=== PATIENT | female | born 1965 | race Caucasian/White ===

== ENCOUNTER → 2017-05-01 | Outpatient (CLI) | payer BC | LOC: M LAB 08:14 | PROVIDERS: ATTEND Physician Assistant Medical | DX: R73.01 Impaired fasting glucose (principal) ==

== ENCOUNTER 2017-10-01 10:10 | Day surgery (SDC) | payer BC ==
[~2017-10-01] VITALS: Ht 162.6 cm; Wt 127.0 kg
[~2017-10-01 10:10] MED LIST: CLAR1TAB2 PO; IBUP-1114 PO; LIDOCAINE 2% INJ 100 MG/5 ML SDV (FOR ANES.) As Ordered ONE; PROPOFOL 200 MG/20 ML VIAL As Ordered ONE
[2017-10-01] MEDS: NS 1,000 ML IV ONE (10:24)
--- NOTE | 2017-10-01 11:41 | ROOR ---
Patient Name: Sanchez Mccracken Procedure Date: 10/01/2017 11:19 AM Date of : 1965 Age: 52 Room: [facility] Gender: Female Note Status: Finalized Procedure: Colonoscopy Indications: Screening for colorectal malignant neoplasm Providers: Chilango RILEY MD Referring MD: Caroline Skaggs Requesting Provider: Medicines: Monitored Anesthesia Care Complications: No immediate complications. Procedure: Pre-Anesthesia Assessment: - The heart rate, respiratory rate, oxygen saturations, blood pressure, adequacy of pulmonary ventilation, and response to care were monitored throughout the procedure. The Colonoscope was introduced through the anus and advanced to the cecum, identified by appendiceal orifice and ileocecal valve. The colonoscopy was performed without difficulty. The patient tolerated the procedure well. The quality of the bowel preparation was fair. Findings: The perianal and digital rectal examinations were normal. (EXAM: Complete, PREP: Suboptimal, required extensive lavage for adequacy of colon prep) Two sessile polyps were found in the ascending colon. The polyps were diminutive in size. These polyps were removed with a jumbo cold forceps. Resection and retrieval were complete. Multiple small-mouthed diverticula were found in the sigmoid colon. The exam was otherwise without abnormality on direct and retroflexion views. Impression: - (EXAM: Complete, PREP: Fair/Suboptimal) - Two diminutive polyps in the ascending colon, removed with a jumbo cold forceps. Resected and retrieved. - Mild diverticulosis in the sigmoid colon. - The examination was otherwise normal on direct and retroflexion views. Recommendation: - Repeat colonoscopy in 3 years because the bowel preparation was suboptimal. - Repeat colonoscopy in 3 years for surveillance. Chilango Riley MD Chilango RILEY MD 10/01/2017 11:41:22 AM This report has been signed electronically. Number of Addenda: 0 Note Initiated On: 10/01/2017 11:19 AM Estimated Blood Loss: Estimated blood loss: none.
[2017-10-03 07:46] VITALS: BP 139/80
== END 2017-10-01 12:20 | disposition home or self-care (01) ==
LOC: M OPP 10:10
PROVIDERS: ATTEND Internal Medicine Gastroenterology
DX: Z12.11 Encounter for screening for malignant neoplasm of colon (principal); D12.2 Benign neoplasm of ascending colon; K57.30 Diverticulosis of large intestine without perforation or abscess without bleeding; J45.909 Unspecified asthma, uncomplicated; M19.90 Unspecified osteoarthritis, unspecified site; M54.9 Dorsalgia, unspecified; L30.9 Dermatitis, unspecified; Z88.0 Allergy status to penicillin; Z91.040 Latex allergy status

== ENCOUNTER → 2017-11-08 | Outpatient (CLI) | payer BC ==
[2017-11-08 09:48] LABS: BASO % 0.4 % (0.0-1.0); EOS # 0.3 10^3/uL (0.0-0.50); EOS % 3.9 % (0.0-3.0); IMMATURE GRANULOCYTE % 0.3 % (0-0); LYMPH # 2.8 10^3/uL (1.5-4.5); LYMPH % 38.7 % (24.0-44.0); MEAN CORPUSCULAR HEMOGLOBIN 27.6 pg (27.0-33.0); MEAN CORPUSCULAR HGB CONC 31.3 g/dl (32.0-36.5); MEAN CORPUSCULAR VOLUME 88.2 fl (80.0-96.0); MONO # 0.6 10^3/uL (0.0-0.8); MONO % 7.7 % (0.0-5.0); NEUTROPHILS # 3.6 10^3/uL (1.8-7.7); PLATELET COUNT, AUTOMATED 274 10^3/uL (150-450); RED CELL DISTRIBUTION WIDTH 13.8 % (11.5-14.5); WHITE BLOOD COUNT 7.2 10^3/uL (4.0-10.0)
[2017-11-08 10:10] LABS: ALBUMIN 3.7 GM/DL (3.2-5.2); ALBUMIN/GLOBULIN RATIO 1.12 (1.00-1.93); ALKALINE PHOSPHATASE 71 U/L (45-117); ALT/SGPT 24 U/L (12-78); ANION GAP 7 MEQ/L (8-16); AST/SGOT 18 U/L (7-37); BILIRUBIN,TOTAL 0.3 MG/DL (0.2-1.0); BLOOD UREA NITROGEN 18 MG/DL (7-18); CALCIUM LEVEL 8.2 MG/DL (8.5-10.1); CARBON DIOXIDE LEVEL 28 MEQ/L (21-32); CHLORIDE LEVEL 109 MEQ/L (98-107); CHOLESTEROL LEVEL 169 MG/DL (<200); CREATININE FOR GFR 0.75 MG/DL (0.55-1.02); GLOMERULAR FILTRATION RATE > 60.0 (>51); GLUCOSE, FASTING 101 MG/DL (70-105); POTASSIUM SERUM 4.4 MEQ/L (3.5-5.1); SODIUM LEVEL 144 MEQ/L (136-145); TRIGLYCERIDES LEVEL 138 MG/DL (<150)
[2017-11-08 11:24] LABS: ESTIMATED AVERAGE GLUCOSE 117 MG/DL (60-110)
[2017-11-08 16:20] LABS: VITAMIN B12 LEVEL 334 PG/ML (247-911)
== END ==
LOC: M LAB 09:06
DX: Z12.11 Encounter for screening for malignant neoplasm of colon (principal)
CPT/HCPCS: 82607

== ENCOUNTER → 2017-12-07 | Outpatient (CLI) | payer BC | LOC: M RAD 09:04 | DX: J06.9 Acute upper respiratory infection, unspecified (principal) | CPT/HCPCS: 71046 ==

== ENCOUNTER → 2018-02-07 | Outpatient (REF) | payer BC ==
[2018-02-07 16:30] LABS: BASO % 0.3 % (0.0-1.0); EOS # 0.3 10^3/uL (0.0-0.50); EOS % 2.8 % (0.0-3.0); HEMATOCRIT 39.9 % (36.0-47.0); HEMOGLOBIN 12.1 g/dl (12.0-15.5); IMMATURE GRANULOCYTE % 0.3 % (0-3.0); LYMPH # 1.6 10^3/uL (1.5-4.5); LYMPH % 16.5 % (24.0-44.0); MEAN CORPUSCULAR HEMOGLOBIN 25.7 pg (27.0-33.0); MEAN CORPUSCULAR HGB CONC 30.3 g/dl (32.0-36.5); MEAN CORPUSCULAR VOLUME 84.7 fl (80.0-96.0); MONO # 0.7 10^3/uL (0.0-0.8); MONO % 7.2 % (0.0-5.0); NEUTROPHILS % 72.9 % (36.0-66.0); PLATELET COUNT, AUTOMATED 226 10^3/uL (150-450); RED BLOOD COUNT 4.71 10^6/uL (4.00-5.40); RED CELL DISTRIBUTION WIDTH 15.2 % (11.5-14.5); WHITE BLOOD COUNT 9.6 10^3/uL (4.0-10.0)
[2018-02-07 16:48] LABS: ALBUMIN/GLOBULIN RATIO 1.08 (1.00-1.93); ALKALINE PHOSPHATASE 76 U/L (45-117); ALT/SGPT 23 U/L (12-78); ANION GAP 5 MEQ/L (8-16); AST/SGOT 17 U/L (7-37); BILIRUBIN,TOTAL 0.4 MG/DL (0.2-1.0); BLOOD UREA NITROGEN 17 MG/DL (7-18); CALCIUM LEVEL 8.4 MG/DL (8.5-10.1); CARBON DIOXIDE LEVEL 27 MEQ/L (21-32); CHLORIDE LEVEL 108 MEQ/L (98-107); CREATININE FOR GFR 0.78 MG/DL (0.55-1.30); GLOMERULAR FILTRATION RATE > 60.0 (>51); GLUCOSE, FASTING 91 MG/DL (70-100); NT-PRO BNP 58 PG/ML (<125); POTASSIUM SERUM 4.8 MEQ/L (3.5-5.1); SODIUM LEVEL 140 MEQ/L (136-145); TOTAL PROTEIN 7.7 GM/DL (6.4-8.2); TROPONIN I < 0.02 NG/ML (< 0.10)
[2018-02-07 16:48] LABS: D-DIMER QUANT 422.3 ng/ml (<500)
== END ==
LOC: M SFHCLERA 15:20
DX: R07.1 Chest pain on breathing (principal)
CPT/HCPCS: 80053

== ENCOUNTER → 2018-02-07 | Outpatient (CLI) | payer BC | LOC: M LRY 15:32 | DX: R09.89 Other specified symptoms and signs involving the circulatory and respiratory systems (principal); R07.1 Chest pain on breathing | CPT/HCPCS: 71046 ==

== ENCOUNTER → 2018-09-17 | Outpatient (CLI) | payer BC ==
[2018-09-17 08:37] LABS: BASO % 0.4 % (0.0-1.0); EOS # 0.2 10^3/uL (0.0-0.50); EOS % 2.5 % (0.0-3.0); HEMATOCRIT 41.8 % (36.0-47.0); HEMOGLOBIN 13.1 g/dl (12.0-15.5); IMMATURE GRANULOCYTE % 0.4 % (0-3.0); LYMPH # 2.4 10^3/uL (1.5-4.5); LYMPH % 31.3 % (24.0-44.0); MEAN CORPUSCULAR HEMOGLOBIN 27.3 pg (27.0-33.0); MEAN CORPUSCULAR HGB CONC 31.3 g/dl (32.0-36.5); MEAN CORPUSCULAR VOLUME 87.1 fl (80.0-96.0); MONO # 0.5 10^3/uL (0.0-0.8); NEUTROPHILS # 4.5 10^3/uL (1.8-7.7); NEUTROPHILS % 58.4 % (36.0-66.0); PLATELET COUNT, AUTOMATED 233 10^3/uL (150-450); RED CELL DISTRIBUTION WIDTH 13.2 % (11.5-14.5); WHITE BLOOD COUNT 7.7 10^3/uL (4.0-10.0)
[2018-09-17 08:57] LABS: ERYTHROCYTE SEDIMENTATION RATE 22 mm/hr (0-30)
[2018-09-17 08:59] LABS: ALBUMIN 3.7 GM/DL (3.2-5.2); ALBUMIN/GLOBULIN RATIO 1.09 (1.00-1.93); ALKALINE PHOSPHATASE 72 U/L (45-117); ALT/SGPT 25 U/L (12-78); ANION GAP 9 MEQ/L (8-16); AST/SGOT 19 U/L (7-37); BILIRUBIN,TOTAL 0.4 MG/DL (0.2-1.0); BLOOD UREA NITROGEN 17 MG/DL (7-18); C REACTIVE PROTEIN QUANTITATIV 1.09 MG/DL (0.00-0.30); CALCIUM LEVEL 8.9 MG/DL (8.5-10.1); CARBON DIOXIDE LEVEL 28 MEQ/L (21-32); CHLORIDE LEVEL 104 MEQ/L (98-107); GLOMERULAR FILTRATION RATE > 60.0 (>51); GLUCOSE, FASTING 93 MG/DL (70-100); POTASSIUM SERUM 4.5 MEQ/L (3.5-5.1); SODIUM LEVEL 141 MEQ/L (136-145); TOTAL PROTEIN 7.1 GM/DL (6.4-8.2)
[2018-09-17 09:01] LABS: ESTIMATED AVERAGE GLUCOSE 128 MG/DL (60-110); HEMOGLOBIN A1c 6.1 %
== END ==
LOC: M LAB 07:47
DX: L03.211 Cellulitis of face (principal); I10 Essential (primary) hypertension; R73.01 Impaired fasting glucose
CPT/HCPCS: 80053

== ENCOUNTER → 2018-10-07 | Outpatient (CLI) | payer BC ==
[2018-10-07 17:47] LABS: BASO % 0.4 % (0.0-1.0); EOS # 0.2 10^3/uL (0.0-0.50); EOS % 2.2 % (0.0-3.0); HEMATOCRIT 41.2 % (36.0-47.0); HEMOGLOBIN 13.1 g/dl (12.0-15.5); IMMATURE GRANULOCYTE % 0.2 % (0-3.0); LYMPH # 2.9 10^3/uL (1.5-4.5); LYMPH % 31.9 % (24.0-44.0); MEAN CORPUSCULAR HEMOGLOBIN 27.8 pg (27.0-33.0); MEAN CORPUSCULAR HGB CONC 31.8 g/dl (32.0-36.5); MEAN CORPUSCULAR VOLUME 87.3 fl (80.0-96.0); MONO # 0.6 10^3/uL (0.0-0.8); MONO % 6.9 % (0.0-5.0); NEUTROPHILS # 5.4 10^3/uL (1.8-7.7); NEUTROPHILS % 58.4 % (36.0-66.0); PLATELET COUNT, AUTOMATED 247 10^3/uL (150-450); RED BLOOD COUNT 4.72 10^6/uL (4.00-5.40); RED CELL DISTRIBUTION WIDTH 13.3 % (11.5-14.5); WHITE BLOOD COUNT 9.2 10^3/uL (4.0-10.0)
[2018-10-07 17:53] LABS: C REACTIVE PROTEIN QUANTITATIV 0.91 MG/DL (0.00-0.30)
[2018-10-07 19:54] LABS: ERYTHROCYTE SEDIMENTATION RATE 23 mm/hr (0-30)
== END ==
LOC: M LAB 16:17
DX: L03.211 Cellulitis of face (principal)
CPT/HCPCS: 86140

== ENCOUNTER → 2019-05-06 | Outpatient (CLI) | payer BC ==
[~2019-05-06] MED LIST changes: -LIDOCAINE 2% INJ 100 MG/5 ML SDV (FOR ANES.) As Ordered ONE; -PROPOFOL 200 MG/20 ML VIAL As Ordered ONE
[2019-05-06 08:12] LABS: BASO # 0.1 10^3/uL (0.0-0.2); BASO % 0.7 % (0.0-1.0); EOS # 0.2 10^3/uL (0.0-0.50); EOS % 2.8 % (0.0-3.0); HEMATOCRIT 40.8 % (36.0-47.0); LYMPH # 2.7 10^3/uL (1.5-4.5); LYMPH % 38.3 % (24.0-44.0); MEAN CORPUSCULAR HEMOGLOBIN 27.7 pg (27.0-33.0); MEAN CORPUSCULAR HGB CONC 31.9 g/dl (32.0-36.5); MEAN CORPUSCULAR VOLUME 86.8 fl (80.0-96.0); MONO # 0.5 10^3/uL (0.0-0.8); MONO % 7.5 % (0.0-5.0); NEUTROPHILS # 3.6 10^3/uL (1.8-7.7); NEUTROPHILS % 50.3 % (36.0-66.0); PLATELET COUNT, AUTOMATED 200 10^3/uL (150-450); WHITE BLOOD COUNT 7.1 10^3/uL (4.0-10.0)
[2019-05-06 08:38] LABS: ALBUMIN 3.5 GM/DL (3.2-5.2); ALT/SGPT 22 U/L (12-78); BILIRUBIN,TOTAL 0.3 MG/DL (0.2-1.0); BLOOD UREA NITROGEN 24 MG/DL (7-18); CALCIUM LEVEL 8.5 MG/DL (8.5-10.1); CARBON DIOXIDE LEVEL 26 MEQ/L (21-32); CHLORIDE LEVEL 109 MEQ/L (98-107); CHOLESTEROL LEVEL 170 MG/DL (<200); CHOLESTEROL RISK RATIO 3.953 (<5); CPK CREATINE PHOSPHOKINASE 75 U/L (26-192); CREATININE FOR GFR 0.92 MG/DL (0.55-1.30); GLOMERULAR FILTRATION RATE > 60.0 (>51); GLUCOSE, FASTING 91 MG/DL (70-100); HDL CHOLESTEROL 43 MG/DL (>40); LDL CHOLESTEROL 103 MG/DL (<100); NON-HDL-C 127 MG/DL; SODIUM LEVEL 141 MEQ/L (136-145); TRIGLYCERIDES LEVEL 119 MG/DL (<150)
[2019-05-06 08:45] LABS: HEMOGLOBIN A1c 6.3 %
== END ==
LOC: M LAB 07:48
PROVIDERS: ATTEND Physician Assistant Medical
DX: I10 Essential (primary) hypertension (principal); Z13.220 Encounter for screening for lipoid disorders; R73.01 Impaired fasting glucose

== ENCOUNTER → 2019-10-28 | Outpatient (CLI) | payer BC ==
--- NOTE | 2019-10-28 17:33 | REPPI ---
REASON FOR EXAM: Knee pain. History of effusion. COMPARISON: 09/15/2015 There is tricompartmental marginal osteophytosis increased somewhat from the prior exam. There is no acute fracture or destructive osseous lesion. IMPRESSION:Chronic changes as described above. If an effusion is of clinical concern then I would recommend an MRI. Electronically Signed by Gustavo Montero DO 10/29/2019 11:31 A
== END ==
LOC: M PLAIMG 15:56
PROVIDERS: ATTEND Physician Assistant Medical
DX: M25.761 Osteophyte, right knee (principal); M25.461 Effusion, right knee

== ENCOUNTER → 2019-11-07 | Outpatient (CLI) | payer BC ==
--- NOTE | 2019-11-10 09:31 | REP ---
MRI right knee without contrast: History: Right knee infusion. Comparison radiographs are reviewed from October 28, 2019, September 04, 2009, and September 15, 2015. Technique: Axial, coronal, and sagittal imaging planes were utilized for T1, proton density T2-weighted scans obtained in the usual fashion with and without fat saturation. MRI findings: There is fairly prominent metallic field susceptibility artifact emanating from the focus in anterolateral tibial plateau. This corresponds with a metallic density seen radiographically in this location on films dating back to 2008. An incidental left intraosseous metallic foreign body is suspected here. It is radiographically stable. Cortical and medullary bone signal intensity are otherwise normal. No Baltazar's cyst is seen. There is however a parameniscal cyst medial aspect of the joint extending superiorly over a craniocaudal span measuring 4.1 cm. The meniscal cyst has components which are deep to and superficial to the collateral ligament. There is no evidence of medial collateral ligament disruption. There is no evidence of lateral collateral ligament disruption. The anterior and posterior cruciate ligaments have an intact appearance. Patellar and quadriceps tendons are unremarkable. Medial and lateral patella retinacular structures are intact. There is moderate chondromalacia in the medial and lateral compartments and early osteoarthritic spurring is seen in the medial and lateral tibial femoral compartment. There is also advanced chondromalacia in the lateral patellar facet with small areas of subcortical marrow edema associated with this. The lateral meniscus has an intact appearance. Impression: 1. There is a complex appearing simply horizontal tear in the posterior horn of the medial meniscus associated with a 4 cm parameniscal cyst. 2. There is three compartment osteoarthritis and moderate to advanced chondromalacia. 3. There is metallic field susceptibility artifact emanating from the small focus of metallic material in the anterolateral tibial plateau. Electronically Signed by Richy Sue MD 11/10/2019 06:17 P
== END ==
LOC: M PLARAD 14:59
PROVIDERS: ATTEND Physician Assistant Medical
DX: M23.021 Cystic meniscus, posterior horn of medial meniscus, right knee (principal); M17.31 Unilateral post-traumatic osteoarthritis, right knee; M22.41 Chondromalacia patellae, right knee; M25.461 Effusion, right knee

== ENCOUNTER → 2019-12-31 | Outpatient (REF) | payer BC ==
[~2019-12-31] MED LIST changes: +AMLO5TAB6 PO; +CLAR10CA3 PO; +MONT10TA4 PO; +SYMB80INH INH
[2019-12-31 18:28] LABS: HEMATOCRIT 40.4 % (36.0-47.0); HEMOGLOBIN 12.7 g/dl (12.0-15.5); MEAN CORPUSCULAR HEMOGLOBIN 27.5 pg (27.0-33.0); MEAN CORPUSCULAR HGB CONC 31.4 g/dl (32.0-36.5); MEAN CORPUSCULAR VOLUME 87.4 fl (80.0-96.0); PLATELET COUNT, AUTOMATED 212 10^3/uL (150-450); RED BLOOD COUNT 4.62 10^6/uL (4.00-5.40); WHITE BLOOD COUNT 7.4 10^3/uL (4.0-10.0)
[2019-12-31 18:50] LABS: HEMOGLOBIN A1c 6.1 %
[2019-12-31 18:59] LABS: BLOOD UREA NITROGEN 15 MG/DL (7-18); CALCIUM LEVEL 8.6 MG/DL (8.5-10.1); CARBON DIOXIDE LEVEL 28 MEQ/L (21-32); CHLORIDE LEVEL 106 MEQ/L (98-107); CREATININE FOR GFR 0.77 MG/DL (0.55-1.30); GLOMERULAR FILTRATION RATE > 60.0 (>51); GLUCOSE, FASTING 91 MG/DL (70-100); POTASSIUM SERUM 3.7 MEQ/L (3.5-5.1); SODIUM LEVEL 137 MEQ/L (136-145)
== END ==
LOC: M SFHCPLAZ 14:22
PROVIDERS: ATTEND Family Medicine
DX: Z01.818 Encounter for other preprocedural examination (principal); R73.01 Impaired fasting glucose

== ENCOUNTER 2020-01-05 11:18 | Day surgery (SDC) | payer BC ==
[~2020-01-05] VITALS: Ht 160 cm; Wt 125.2 kg
[~2020-01-05 11:18] MED LIST changes: +CLINDAMYCIN 900 MG in IV 1 EA IV ONE; +LR 1,000 ML IV ONE
[2020-01-05] MEDS ORDERED: MIDAZOLAM INJ 2 MG/2 ML VIAL (J2250) As Ordered ONE (12:29)
[2020-01-05] MEDS ORDERED: propofoL 200 MG/20 ML VIAL As Ordered ONE (12:29)
[2020-01-05] MEDS ORDERED: ONDANSETRON 4MG/2ML VIAL (J2405) As Ordered ONE (12:30)
[2020-01-05] MEDS ORDERED: LIDOCAINE 2% INJ 100 MG/5 ML SDV (FOR ANES.) As Ordered ONE (12:30)
[2020-01-05] MEDS ORDERED: ROPIvacaine 0.5% 30 ML INJECTION (J2795 PER 1MG) As Ordered ONE (13:26)
[2020-01-05] MEDS ORDERED: ACETAMINOPHEN 1000MG 100ML IV BTL (OFIRMEV) (J0131 PER 10MG) As Ordered ONE (14:28)
[2020-01-05] MEDS ORDERED: TRIAMCINOLONE ACETONIDE SUSP 40 MG/ML VIAL (J3301) As Ordered ONE (14:30)
[2020-01-05] MEDS ORDERED: METOCLOPRAMIDE INJ 10MG/2ML VIAL (J2765) IV PRN (15:00)
[2020-01-05] MEDS ORDERED: fentaNYL 100 MCG/2 ML INJECTION (J3010) IV PRN (15:00)
[2020-01-05] MEDS ORDERED: LR 1,000 ML IV SCH ×2 (15:00→16:01)
[2020-01-05] MEDS ORDERED: PERCOCET 5MG/325MG TAB PO PRN (15:00)
[2020-01-05] MEDS ORDERED: ONDANSETRON 4MG/2ML VIAL (J2405) IV PRN (15:00)
[2020-01-05] MEDS ORDERED: ACETAMINOPH W/CODEINE #3 TAB UD PO PRN ×2 (15:00→16:01)
[2020-01-05] MEDS ORDERED: MORPHINE 2 MG/ML 1ML VIAL (J2270) IV PRN (16:01)
[2020-01-05 17:00] VITALS: BP 165/62
--- NOTE | 2020-01-06 07:31 | RO ---
DATE OF PROCEDURE: 01/05/2020 PREOPERATIVE DIAGNOSIS: Right knee osteoarthritis, medial meniscus tear. POSTOPERATIVE DIAGNOSIS: Right knee osteoarthritis, medial meniscus tear. PROCEDURE: Right knee operative arthroscopy, partial medial meniscectomy, joint debridement. SURGEON: Dr. Rex Isidro BRIEF WRITER: ANESTHESIA: Spinal. ESTIMATED BLOOD LOSS: Less than 2. COMPLICATIONS: None. INDICATIONS: This is a 54-year-old, morbidly obese woman with some persistent right knee pain. MRI scan was consistent with a meniscus tear and some arthritis. She wished to go ahead with surgical treatment having failed conservative management. She understood the nature of this and the risks of bleeding, infection, damage to nerves, vessels, persistent pain, blood clots, medical problems, among others. DESCRIPTION OF PROCEDURE: The patient was taken to the operating room and placed in a supine position after spinal anesthesia was induced. The right lower extremity was prepped and draped in the usual sterile fashion. A time out was performed. The tourniquet was inflated. I then created inferomedial and inferolateral portals per routine and identified the patellofemoral joint. There were some grade 2 to 3 changes throughout the patellofemoral joint and some thickened plica that was excised. I proceeded down the medial gutter. There was some grade 3 changes on the medial femoral condyle with loose flaps that were carefully smoothed off and a posterior medial meniscus tear that was resected with a shaver back to a stable rim. The anterior cruciate ligament (ACL) was unremarkable. The lateral compartment was otherwise unremarkable aside from some grade 2 changes consistent with arthritis. I irrigated the knee, reprobed the menisci and made sure the medial meniscus resection was adequate and closed with skin with 4-0 nylon suture. I injected 15 mL of Naropin as well as 40 mg of Kenalog. A sterile dressing was applied. She was taken to the recovery room in stable condition. There were no known complications. The plan will be routine postop.
== END 2020-01-05 17:05 | disposition home or self-care (01) ==
LOC: M SDC 11:18
PROVIDERS: ATTEND Orthopaedic Surgery
DX: S83.241A Other tear of medial meniscus, current injury, right knee, initial encounter (principal); M17.11 Unilateral primary osteoarthritis, right knee; X58.XXXA Exposure to other specified factors, initial encounter; Y92.89 Other specified places as the place of occurrence of the external cause; I10 Essential (primary) hypertension; R73.03 Prediabetes; K21.9 Gastro-esophageal reflux disease without esophagitis; J45.40 Moderate persistent asthma, uncomplicated; G62.9 Polyneuropathy, unspecified; Z87.891 Personal history of nicotine dependence; Z91.018 Allergy to other foods; Z88.0 Allergy status to penicillin; Z88.8 Allergy status to other drugs, medicaments and biological substances; Z91.040 Latex allergy status; Z79.899 Other long term (current) drug therapy; Z79.52 Long term (current) use of systemic steroids
CPT/HCPCS: 29881; J0131; J2250; J2405; J2795; J3301

== ENCOUNTER 2021-01-03 07:05 | Emergency (ER) | payer BC ==
[~2021-01-03] VITALS: Ht 162.6 cm; Wt 131.8 kg
[~2021-01-03 07:05] MED LIST changes: +AMLO1TAB24 PO; -AMLO5TAB6 PO; -CLINDAMYCIN 900 MG in IV 1 EA IV ONE; -LR 1,000 ML IV ONE; +MONT10TA10 PO; -MONT10TA4 PO
--- OUTSIDE RECORDS SUMMARY | 2021-01-03 07:11 | CCD | Continuity of Care Document ---
Author Author Sanchez DUNNE RPA-C Organization Unknown Address [address], [address] [place] [address] Phone [phone] Care Team Providers Care Reporter Anchor Name Role Phone Caroline Skaggs AUTM Problems Active Problems Provider Date Essential hypertension Mary Beth Avery UZMA Dunne Onset: Social History Type Date Description Comments Sex Unknown ETOH Use Denies alcohol use Tobacco Use Start: Unknown Non Smoker Allergies, Adverse Reactions, Alerts Active Allergies Reaction Severity Comments Date Penicillin 09/03/2017 Medications Active Medications SIG Qnty Indications Ordering Provide r Date Miralax 17GM/Scoop Powder use as instructed by doctor for bowel prep 510gm Z12.11 Chilango Camargo MD 12/29/2020 Magnesium Citrate 1.745GM/30ML Yasmin ution take one 10 ounce bottle prior to procedure for additional bowel prep per instructions. 296ml Z12.11 Chilango Camargo MD 12/29/2020 Ibuprofen 800mg Tablets Daily Unknown Loratadine 10mg Tablets 2 by mouth every day Unknown Amlodipine Besylate 5mg Tablets 1 by mouth every day Unknown Immunizations Description No Information Available Vital Signs Date Vital Result Comment 12/29/2020 3:25pm BP Systolic 122 mmHg BP Diastolic 82 mmHg Height 64 inches 5'4" Weight 282.00 lb BMI (Body Mass Index) 48.4 kg/m2 [place] Body Weight 120 lb Weight 127.915 kg BSA (Body Surface Area) 2.26 m2 09/04/2017 8:25am BP Systolic 128 mmHg BP Diastolic 84 mmHg Height 64 inches 5'4" Weight 282.00 lb BMI (Body Mass Index) 48.4 kg/m2 [place] Body Weight 120 lb Weight 127.915 kg BSA (Body Surface Area) 2.26 m2 Results Description No Information Available Procedures Description No Information Available Medical Devices Description No Information Available Encounters Description No Information Available Assessments Date Code Description Provider 12/29/2020 Z12.11 Encounter for screening for tammy gnant neoplasm of colon Mary Beth Avery UZMA Dunne 12/29/2020 Z86.010 Personal history of colonic poly ps UZMA Paz Plan of Treatment 12/29/2020 - Mary Beth Avery UZMA Dunne* Z12.11 Encounter for screening for malignant neoplasm of colon * Z86.010 Personal history of colonic polyps * * New Medication:* Miralax 17 GM/Scoop * Magnesium Citrate 1.745 GM/30ML * New Orders:* Colonoscopy, Ordered: 12/29/20 * Comments:* Will arrange for colonoscopy. Reviewed risks and benefits of the procedure, as well as other options, with the patient. Bowel prep procedure was discussed with patient, as well as risks and side effects associated with the bowel prep. Patient verbalized understanding of all of the above and is in agreement to proceed. Patient will seek medical attention for any acute changes. Will monitor. * Follow up:* As scheduled, sooner if needed. Functional Status Description No Information Available Mental Status Description No Information Available Referrals Description No Information Available
--- OUTSIDE RECORDS SUMMARY | 2021-01-03 07:11 | CCD ---
Author Author [facility] Organization [facility] Address Unknown Phone Unavailable Care Team Providers Care Concaver Name Role Phone Fish, B Rex FRANKLIN Unavailable Unavailable Fish, B Rex FRANKLIN Unavailable Unavailable Fish, B Rex FRANKLIN Unavailable Unavailable Fish, B Rex FRANKLIN Unavailable Unavailable Fish, B Rex FRANKLIN Unavailable Unavailable Fish, B Rex FRANKLIN Unavailable Unavailable Fish, B Rex FRANKLIN Unavailable Unavailable Fish, B Rex FRANKLIN Unavailable Unavailable Fish, B Rex FRANKLIN Unavailable Unavailable Fish, B Rex FRANKLIN Unavailable Unavailable Fish, B Rex FRANKLIN Unavailable Unavailable Fish, B Rex FRANKLIN Unavailable Unavailable Fish, B Rex FRANKLIN Unavailable Unavailable Fish, B Rex FRANKLIN Unavailable Unavailable Fish, B Rex FRANKLIN Unavailable Unavailable Fish, B Rex FRANKLIN Unavailable Unavailable Fish, B Rex FRANKLIN Unavailable Unavailable Fish, B Rex FRANKLIN Unavailable Unavailable Fish, B Rex FRANKLIN Unavailable Unavailable Fish, B Rex FRANKLIN Unavailable Unavailable Fish, B Rex FRANKLIN Unavailable Unavailable Fish, B Rex FRANKLIN Unavailable Unavailable Fish, B Rex FRANKLIN Unavailable Unavailable Fish, B Rex FRANKLIN Unavailable Unavailable Fish, B Rex FRANKLIN Unavailable Unavailable Fish, B Rex FRANKLIN Unavailable Unavailable Fish, B Rex FRANKLIN Unavailable Unavailable Fish, B Rex FRANKLIN Unavailable Unavailable Fish, B Rex FRANKLIN Unavailable Unavailable Fish, B Rex MD Unavailable Unavailable Fish, B Rex MD Unavailable Unavailable Fish, B Rex MD Unavailable Unavailable Fish, B Rex MD Unavailable Unavailable Fish, B Rex MD Unavailable Unavailable Fish, B Rex MD Unavailable Unavailable Fish, B Rex MD Unavailable Unavailable Fish, B Rex MD Unavailable Unavailable Fish, B Rex MD Unavailable Unavailable Fish, B Rex MD Unavailable Unavailable Fish, B Rex MD Unavailable Unavailable Fish, B Rex MD Unavailable Unavailable Fish, B Rex MD Unavailable Unavailable Fish, B Rex MD Unavailable Unavailable Fish, B Rex MD Unavailable Unavailable Fish, B Rex MD Unavailable Unavailable Fish, B Rex MD Unavailable Unavailable Fish, B Rex MD Unavailable Unavailable Fish, B Rex MD Unavailable Unavailable Fish, B Rex MD Unavailable Unavailable Fish, B Rex MD Unavailable Unavailable Fish, B Rex MD Unavailable Unavailable Fish, B Rex MD Unavailable Unavailable Fish, B Rex MD Unavailable Unavailable Re-disclosure Warning The records that you are about to access may contain information from federally-assisted alcohol or drug abuse programs. If such information is present, then the following federally mandated warning applies: This information has been disclosed to you from records protected by federal confidentiality rules (42 CFR part 2). The federal rules prohibit you from making any further disclosure of this information unless further disclosure is expressly permitted by the written consent of the person to whom it pertains or as otherwise permitted by 42 CFR part 2. A general authorization for the release of medical or other information is NOT sufficient for this purpose. The Federal rules restrict any use of the information to criminally investigate or prosecute any alcohol or drug abuse patient.The records that you are about to access may contain highly sensitive health information, the redisclosure of which is protected by Article 27-F of the [facility] Public Health law. If you continue you may have access to information: Regarding HIV / AIDS; Provided by facilities licensed or operated by the [facility] Office of Mental Health; or Provided by the [facility] Office for People With Developmental Disabilities. If such information is present, then the following [facility] mandated warning applies: This information has been disclosed to you from confidential records which are protected by state law. State law prohibits you from making any further disclosure of this information without the specific written consent of the person to whom it pertains, or as otherwise permitted by law. Any unauthorized further disclosure in violation of state law may result in a fine or snf sentence or both. A general authorization for the release of medical or other information is NOT sufficient authorization for further disc losure. Allergies and Adverse Reactions Type Description Substance Reaction Status Data Source(s ) Drug allergy Mucinex Guaifenesin SOB Active eCW1 ([facility]) latex latex latex rash, blisters Active eCW1 ([facility]) dust dust dust Rash Active eCW1 ([facility]) Family History Family Member Name Family Member Gender Family Member Status Date o f Status Description Data Source(s) Unknown Unknown Problem MEDENT ([facility], ) or Endometrial Cancer; Mother; 40's Encounters Encounter Providers Location Date Indications Data Source(s ) Unknown [address] [place] [phone] 09/02/2020 12:00:00 AM EDT eCW1 ([facility]) Unknown [address] [place] [phone] 05/30/2020 12:00:00 AM EDT eCW1 ([facility]) [address] [address] 02/29/2020 12:00:00 AM EDT eCW1 ([facility]) Outpatient [address] [place] [phone] 02/13/2020 12:00:00 AM EDT eCW1 ([facility]) [address] [address] 01/01/2020 12:00:00 AM EST eCW1 ([facility]) [address] [address] 12/31/2019 12:00:00 AM EST eCW1 ([facility]) OFFICE OUTPATIENT NEW 30 MINUTES Attender: Rex Isidro MD Physic al Therapy 12/03/2019 08:30:00 AM EST MEDENT ([facility]) Outpatient 11/24/2019 08:16:00 PM EST [facility] [address] [address] 11/24/2019 12:00:00 AM EST eCW1 ([facility]) Outpatient 11/18/2019 02:34:00 PM EST [facility] [address], [facility] [address] 11/13/2019 12:00:00 AM EST eCW1 ([facility]) Medications Medication Brand Name Start Date Product Form Dose Route Admi nistrative Instructions Pharmacy Instructions Status Indications Reaction Description Data Source(s) magnesium citrate 58.2 MG/ML Oral Solution Magnesium Citrate 12/29/2020 12:00:00 AM EST active MEDENT ([facility], ) POLYETHYLENE GLYCOL 3350 142 MG/ML Oral Solution [Miralax] M iralax 12/29/2020 12:00:00 AM EST active M EDENT ([facility], ) Acetaminophen 300 MG / Codeine Phosphate 30 MG Oral Tablet [Tylenol with Codeine] Tylenol With Codeine #3 12/22/2019 12:00:00 AM EST ORAL active MEDENT ([facility]) Insurance Providers Payer name Policy type / Coverage type Policy ID Covered democrat ID Covered democrat's relationship to peterson Policy Peterson Plan Information [facility] [employer] [id number] [employer] [id number] [facility] B [id number] P [id number] ANSI-Commercial [id number] ANSI-Commercial [id number] ANSI-Commercial [id number] ANSI-Commercial [id number] ANSI-Commercial [id number] ANSI-Commercial [id number] ANSI-Commercial [id number] ANSI-Commercial [id number] [facility] [employer] [employer] [employer] [id number] ANSI-Commercial [id number] ANSI-Commercial [id number] [facility] [id number] HU2 [id number] [facility] Health Maintenance Organization (HMO) [id number] Family Dependent [id number] [facility] [id number] HU2 [id number] [facility] [id number] HU2 [id number] [facility] [id number] HU2 [id number] [facility] FEDERAL B [id number] P [id number] Problems, Conditions, and Diagnoses Code Display Name Description Problem Type Effective Dates Data Source(s) 94314255 Essential hypertension Essential hypertension Problem 12/29/2020 12:00:00 AM EST MEDENT ([facility], ) J45.40 [id number] Moderate persistent asthma without compli cation Problem 12/31/2019 12:00:00 AM EST eCW1 ([facility]) J45.40 [id number] Moderate persistent asthma without compli cation Problem 12/31/2019 12:00:00 AM EST eCW1 ([facility]) 66713256 Essential hypertension Essential hypertension Problem 12/03/2019 12:00:00 AM EST MEDENT ([facility] ) M23.221 [id number] Derangement of poste rior horn of medial meniscus due to old tear or injury, right knee Problem 11/13/2019 12:00:00 AM EST eCW1 ( [facility]) M23.221 [id number] Derangement of poste rior horn of medial meniscus due to old tear or injury, right knee Problem 11/13/2019 12:00:00 AM EST eCW1 ( [facility]) Surgeries/Procedures Procedure Description Date Indications Data Source(s) ARTHRS KNE SURG W/MENISCECTOMY MED/LAT W/SHVG 01/05/20 12:00:00 AM EST MEDENT ([facility] ) EKG- ALL NON MCR/TRI PAYERS 12/31/2019 12:00:00 AM EST eCW1 ([facility]) Results ID Date Data Source Basic Metabolic Profile (BMP) 12/31/2019 12:00:00 AM EST eCW 1 ([facility]) Name Value Range Interpretation Code Description Data Lily rce(s) Supporting Document(s) 0.77 0.55-1.30 CREATININE FOR GFR eCW1 ([facility]) > 60.0 >51 GLOMERULAR FILTRATION RATE eCW 1 ([facility]) 91 70-100 GLUCOSE, FASTING eCW1 ([facility]) 15 7-18 BLOOD UREA NITROGEN eCW1 ([facility]) 137 136-145 SODIUM LEVEL eCW1 ([facility]) 106 98-107 CHLORIDE LEVEL eCW1 ([facility]) 28 21-32 CARBON DIOXIDE LEVEL eCW1 ([facility]) 3.7 3.5-5.1 POTASSIUM SERUM eCW1 ([facility]) 8.6 8.5-10.1 CALCIUM LEVEL eCW1 ([facility]) ID Date Data Source [id number] 12/31/2019 12:00:00 AM EST eCW1 ([facility]) Name Value Range Interpretation Code Description Data Lily rce(s) Supporting Document(s) Hemoglobin A1c/Hemoglobin.total in Blood 6.1 HEMOGLOBIN A1c eCW1 ([facility]) ID Date Data Source CBC - Complete Blood Count 12/31/2019 12:00:00 AM EST eCW1 ( [facility]) Name Value Range Interpretation Code Description Data Lily rce(s) Supporting Document(s) 7.4 4.0-10.0 WHITE BLOOD COUNT eCW1 ([facility]) 4.62 4.00-5.40 RED BLOOD COUNT eCW1 ([facility]) 12.7 12.0-15.5 HEMOGLOBIN eCW1 ([facility]) 40.4 36.0-47.0 HEMATOCRIT eCW1 ([facility]) 31.4 32.0-36.5 MEAN CORPUSCULAR HGB CONC eCW1 ([facility]) 87.4 80.0-96.0 MEAN CORPUSCULAR VOLUME e CW1 ([facility]) 13.6 11.5-14.5 RED CELL DISTRIBUTION WID TH eCW1 ([facility]) 27.5 27.0-33.0 MEAN CORPUSCULAR HEMOGLOB IN eCW1 ([facility]) 212 150-450 PLATELET COUNT, AUTOMATED eCW1 ([facility]) Procedure Social History Code Duration Value Status Description Data Source(s ) Smoking 12/31/2019 12:00:00 AM EST Never Smoker completed Never S moker eCW1 ([facility]) Smoking 12/31/2019 12:00:00 AM EST Never Smoker completed Never S moker eCW1 ([facility]) Vital Signs ID Date Data Source UNK Name Value Range Interpretation Code Description Data Source(s) Body surface area Derived from formula 2.26 m2 2.26 m2 MEDENT ([facility], ) Body weight 127.915 kg 127.915 kg MEDENT ([facility] ) [place] body weight 120 [lb_av] 120 [lb_av] MEDEN T ([facility], ) Body mass index (BMI) [Ratio] 48.4 kg/m2 48.4 k g/m2 MEDENT ([facility]) Body weight 282.00 [lb_av] 282.00 [lb_av] MEDEN T ([facility]) Body height 64 [in_i] 64 [in_i] MEDENT ([facility], ) 5'4" Diastolic blood pressure 82 mm[Hg] 82 mm[Hg] MEDENT ([facility]) Systolic blood pressure 122 mm[Hg] 122 mm[Hg] M EDENT ([facility]) Body temperature 97.7 [degF] 97.7 [degF] MEDENT ([facility] ) Diastolic blood pressure 80 mm[Hg] 80 mm[Hg] eCW1 ([facility]) Systolic blood pressure 138 mm[Hg] 138 mm[Hg] e CW1 ([facility]) Body temperature 97.8 [degF] 97.8 [degF] eCW1 ( [facility]) Respiratory rate 18 /min 18 /min eCW1 ([facility]) Heart rate 88 /min 88 /min eCW1 ([facility]) Body mass index (BMI) [Ratio] 49.26 kg/m2 49.26 kg/m2 W1 ([facility]) Body height 64 [in_us] 64 [in_us] eCW1 ([facility]) Body weight Measured 287 [lb_av] 287 [lb_av] eC W1 ([facility]) Body mass index (BMI) [Ratio] 49.3 kg/m2 49.3 k g/m2 MEDENT ([facility] ) Body weight 280.38 [lb_av] 280.38 [lb_av] MEDEN T ([facility] ) Body height 63.25 [in_i] 63.25 [in_i] MEDENT ([facility] ) 5'3.25" Body temperature 97.7 [degF] 97.7 [degF] MEDENT ([facility] )
[2021-01-03] MEDS ORDERED: LIDOCAINE W/EPINEPHRINE 1% 20ML VIAL SC ONE (07:45)
--- OUTSIDE RECORDS SUMMARY | 2021-01-03 07:52 | CCD ---
Author Author [facility] Organization [facility] Address Unknown Phone Unavailable Care Team Providers Care Systems Management Consultant Name Role Phone Fish, B Rex FRANKLIN [...] Rex FRANKLIN Unavailable Unavailable Fish, B Rex FRANKLNI Unavailable Unavailable Fish, B Rex FRANKLIN Unavailable [...] is protected by Article 27-F of the [facility] Public Health law. If you continue you may have access to information: Regarding HIV / AIDS; Provided by facilities licensed or operated by the [facility] Office of Mental Health; or Provided by the [facility] Office for People With Developmental Disabilities. If such information is present, then the following [facility] mandated warning applies: This information has been [...] law may result in a fine or usp sentence or both. A general authorization for the release of medical or other information is NOT sufficient authorization for further disc losure. Allergies and Adverse Reactions Type Description Substance Reaction Status Data Source(s ) Drug allergy Mucinex Guaifenesin SOB Active eCW1 ([facility]) latex latex latex rash, blisters Active eCW1 ([facility]) dust dust dust Rash Active eCW1 ([facility]) Family History Family Member Name Family Member Gender Family Member Status Date o f Status Description Data Source(s) Unknown Unknown Problem MEDENT ([facility], ) or Endometrial Cancer; Mother; 40's Encounters Encounter Providers Location Date Indications Data Source(s ) Unknown [address] [place] [address] 09/02/2020 12:00:00 AM EDT eCW1 ([facility]) Unknown [address] [place] [phone] 05/30/2020 12:00:00 AM EDT eCW1 ([facility]) [address] [address] 02/29/2020 12:00:00 AM EDT eCW1 ([facility]) Outpatient [address] [place] [phone] 02/13/2020 12:00:00 AM EDT eCW1 ([facility]) [address] [address] 01/01/2020 12:00:00 AM EST eCW1 ([facility]) [address] [place] [address] 12/31/2019 12:00:00 AM EST eCW1 ([facility]) OFFICE OUTPATIENT NEW 30 MINUTES Attender: Rex Isidro MD Physic al Therapy 12/03/2019 08:30:00 AM EST MEDENT ([facility]) Outpatient 11/24/2019 08:16:00 PM EST [facility] [address] [address] 11/24/2019 12:00:00 AM EST eCW1 ([facility]) Outpatient 11/18/2019 02:34:00 PM EST [facility] [address], [facility] [address] 11/13/2019 12:00:00 AM EST eCW1 ([facility]) Medications Medication Brand Name Start Date Product Form Dose Route Admi nistrative Instructions Pharmacy Instructions Status Indications Reaction Description Data Source(s) magnesium citrate 58.2 MG/ML Oral Solution Magnesium Citrate 12/29/2020 12:00:00 AM EST active MEDENT ([facility], ) POLYETHYLENE GLYCOL 3350 142 MG/ML Oral Solution [Miralax] M iralax 12/29/2020 12:00:00 AM EST active M EDENT ([facility], ) Acetaminophen 300 MG / Codeine Phosphate 30 MG Oral Tablet [Tylenol with Codeine] Tylenol With Codeine #3 12/22/2019 12:00:00 AM EST ORAL active MEDENT ([facility]) Insurance Providers Payer name Policy type / Coverage type Policy ID Covered democrat ID Covered democrat's relationship to peterson Policy Peterson Plan Information [facility] [employer] [id number] HU2 [id number] [facility] [employer] [id number] HU2 [id number] [facility] B [id number] P [id number] ANSI-Commercial [id number] ANSI-Commercial [id number] ANSI-Commercial [id number] ANSI-Commercial [id number] ANSI-Commercial [id number] ANSI-Commercial [id number] ANSI-Commercial [id number] ANSI-Commercial [id number] [facility] [employer] [id number] HU2 [id number] ANSI-Commercial [id number] ANSI-Commercial [id number] [facility] [id number] HU2 [id number] [facility] Health Maintenance Organization (HMO) [id number] Family Dependent [id number] [facility] [id number] HU2 [id number] [facility] [id number] HU2 [id number] [facility] [id number] HU2 [id number] [facility] FEDERAL B [id number] P [id number] Problems, Conditions, and Diagnoses Code Display Name Description Problem Type Effective Dates Data Source(s) 08577612 Essential hypertension Essential hypertension Problem 12/29/2020 12:00:00 AM EST MEDENT ([facility], ) J45.40 [id number] Moderate persistent asthma without compli cation Problem 12/31/2019 12:00:00 AM EST eCW1 ([facility]) J45.40 [id number] Moderate persistent asthma without compli cation Problem 12/31/2019 12:00:00 AM EST eCW1 ([facility]) [id number] Essential hypertension Essential hypertension Problem 12/03/2019 12:00:00 AM EST MEDENT ([facility] ) M23.221 [id number] Derangement of poste rior horn of medial meniscus due to old tear or injury, right knee Problem 11/13/2019 12:00:00 AM EST eCW1 ( [facility]) M23.221 [id number] Derangement of poste rior horn of medial meniscus due to old tear or injury, right knee Problem 11/13/2019 12:00:00 AM EST eCW1 ( [facility]) Surgeries/Procedures Procedure Description Date Indications Data Source(s) ARTHRS KNE SURG W/MENISCECTOMY MED/LAT W/SHVG 01/05/20 12:00:00 AM EST MEDENT ([facility] ) EKG- ALL NON MCR/TRI PAYERS 12/31/2019 12:00:00 AM EST eCW1 ([facility]) Results ID Date Data Source Basic Metabolic Profile (BMP) 12/31/2019 12:00:00 AM EST eCW 1 ([facility]) Name Value Range Interpretation Code Description Data Lily rce(s) Supporting Document(s) 0.77 0.55-1.30 CREATININE FOR GFR eCW1 ([facility]) > 60.0 >51 GLOMERULAR FILTRATION RATE eCW 1 ([facility]) 91 70-100 GLUCOSE, FASTING eCW1 ([facility]) 15 7-18 BLOOD UREA NITROGEN eCW1 ([facility]) 137 136-145 SODIUM LEVEL eCW1 ([facility]) 106 98-107 CHLORIDE LEVEL eCW1 ([facility]) 28 21-32 CARBON DIOXIDE LEVEL eCW1 ([facility]) 3.7 3.5-5.1 POTASSIUM SERUM eCW1 ([facility]) 8.6 8.5-10.1 CALCIUM LEVEL eCW1 ([facility]) ID Date Data Source [id number] 12/31/2019 12:00:00 AM EST eCW1 ([facility]) Name Value Range Interpretation Code Description Data Lily rce(s) Supporting Document(s) Hemoglobin A1c/Hemoglobin.total in Blood 6.1 HEMOGLOBIN A1c eCW1 ([facility]) ID Date Data Source CBC - Complete Blood Count 12/31/2019 12:00:00 AM EST eCW1 ( [facility]) Name Value Range Interpretation Code Description Data Lily rce(s) Supporting Document(s) 7.4 4.0-10.0 WHITE BLOOD COUNT eCW1 ([facility]) 4.62 4.00-5.40 RED BLOOD COUNT eCW1 ([facility]) 12.7 12.0-15.5 HEMOGLOBIN eCW1 ([facility]) 40.4 36.0-47.0 HEMATOCRIT eCW1 ([facility]) 31.4 32.0-36.5 MEAN CORPUSCULAR HGB CONC eCW1 ([facility]) 87.4 80.0-96.0 MEAN CORPUSCULAR VOLUME e CW1 ([facility]) 13.6 11.5-14.5 RED CELL DISTRIBUTION WID TH eCW1 ([facility]) 27.5 27.0-33.0 MEAN CORPUSCULAR HEMOGLOB IN eCW1 ([facility]) 212 150-450 PLATELET COUNT, AUTOMATED eCW1 ([facility]) Procedure Social History Code Duration Value Status Description Data Source(s ) Smoking 12/31/2019 12:00:00 AM EST Never Smoker completed Never S moker eCW1 ([facility]) Smoking 12/31/2019 12:00:00 AM EST Never Smoker completed Never S moker eCW1 ([facility]) Vital Signs ID Date Data Source UNK Name Value Range Interpretation Code Description Data Source(s) Body surface area Derived from formula 2.26 m2 2.26 m2 MEDENT ([facility], ) Body weight 127.915 kg 127.915 kg MEDENT ([facility], ) [place] body weight 120 [lb_av] 120 [lb_av] MEDEN T ([facility], ) Body mass index (BMI) [Ratio] 48.4 kg/m2 48.4 k g/m2 MEDENT ([facility]) Body weight 282.00 [lb_av] 282.00 [lb_av] MEDEN T ([facility]) Body height 64 [in_i] 64 [in_i] MEDENT ([facility], ) 5'4" Diastolic blood pressure 82 mm[Hg] 82 mm[Hg] MEDENT ([facility]) Systolic blood pressure 122 mm[Hg] 122 mm[Hg] M EDENT ([facility]) Body temperature 97.7 [degF] 97.7 [degF] MEDENT ([facility] ) Diastolic blood pressure 80 mm[Hg] 80 mm[Hg] eCW1 ([facility]) Systolic blood pressure 138 mm[Hg] 138 mm[Hg] e CW1 ([facility]) Body temperature 97.8 [degF] 97.8 [degF] eCW1 ( [facility]) Respiratory rate 18 /min 18 /min eCW1 ([facility]) Heart rate 88 /min 88 /min eCW1 ([facility]) Body mass index (BMI) [Ratio] 49.26 kg/m2 49.26 kg/m2 W1 ([facility]) Body height 64 [in_us] 64 [in_us] eCW1 ([facility]) Body weight Measured 287 [lb_av] 287 [lb_av] eC W1 ([facility]) Body mass index (BMI) [Ratio] 49.3 kg/m2 49.3 k g/m2 MEDENT ([facility] ) Body weight 280.38 [lb_av] 280.38 [lb_av] MEDEN T ([facility] ) Body height 63.25 [in_i] 63.25 [in_i] MEDENT ([facility] ) 5'3.25" Body temperature 97.7 [degF] 97.7 [degF] MEDENT ([facility] )
--- NOTE | 2021-01-03 08:10 | REP ---
INDICATION: trauma. COMPARISON: None. TECHNIQUE: Helical scanning is acquired. 5 mm axial images were reformatted. Coronal MPR images were generated. FINDINGS: Bone window settings demonstrate an intact bony calvarium. There is no evidence of skull fracture or incidental bony calvarial lesion. The visualized paranasal sinuses appear clear. No intraorbital abnormality is seen. On soft tissue window setting images; the lateral, third, and fourth ventricles are normal in size and position. Ayon-white differentiation pattern is normal above and below the tentorium. There are is no evidence of intracranial hemorrhage. No mass, edema, infarction, or midline shift is seen. No extra-axial fluid collection is appreciated. IMPRESSION: Negative noncontrast head CT. <Electronically signed by Roberto Sue > 01/03/21 [id number]
--- NOTE | 2021-01-03 08:15 | REP ---
INDICATION: trauma. COMPARISON: None. TECHNIQUE: Helical scanning is acquired and overlapping 2 mm high resolution axial images were generated and reviewed at bone and soft tissue window settings. Coronal and sagittal multiplanar re-formations images are generated. FINDINGS: There is no evidence of cervical spine element fracture. No skull base fracture is seen. Cervical vertebral body heights are preserved. Alignment is normal. Facet joints are normally aligned bilaterally at each cervical level on multiplanar re-formations images. There is no evidence of intraspinal or paraspinal hematoma. No extra vertebral abnormality is seen. There is degenerative disc disease most pronounced at C5-6 and C6-7 where there are posterior discogenic spurs narrowing the spinal canal slightly. There is straightening and slight reversal of the normal cervical lordosis. IMPRESSION: Degenerative spondylosis changes C5-6 and C6-7. Otherwise negative. No traumatic abnormality noted.. <Electronically signed by Roberto Sue > 01/03/21 [id number]
[2021-01-03] MEDS ORDERED: CEPH500C PO (08:51)
[2021-01-03] MEDS ORDERED: BOOSTRIX/ADACEL VACCINE (DIPHTH/PERTUSS/ACELL/TETANUS) 0.5ML SYR IM ONE (09:00)
[2021-01-03 09:08] VITALS: BP 166/70
== END 2021-01-03 09:10 | disposition home or self-care (01) ==
LOC: M ED 07:05
DX: S01.81XA Laceration without foreign body of other part of head, initial encounter (principal); W01.198A Fall on same level from slipping, tripping and stumbling with subsequent striking against other object, initial encounter; Y92.018 Other place in single-family (private) house as the place of occurrence of the external cause; I10 Essential (primary) hypertension; J45.909 Unspecified asthma, uncomplicated; Z79.899 Other long term (current) drug therapy; Z88.0 Allergy status to penicillin; Z88.8 Allergy status to other drugs, medicaments and biological substances; Z91.018 Allergy to other foods; Z91.040 Latex allergy status

== ENCOUNTER → 2021-03-06 | Outpatient (CLI) | payer BC ==
[~2021-03-06] MED LIST changes: +CEPH500C PO
== END ==
LOC: M LABSMTC 08:29
PROVIDERS: ATTEND Anesthesiology
DX: Z01.812 Encounter for preprocedural laboratory examination (principal); Z11.52 Encounter for screening for COVID-19

== ENCOUNTER 2021-03-11 08:36 | Day surgery (SDC) | payer BC ==
[~2021-03-11] VITALS: Ht 162.6 cm; Wt 125.6 kg
[~2021-03-11 08:36] MED LIST changes: +NS 1,000 ML IV ONE
[2021-03-11] MEDS ORDERED: propofoL 200 MG/20 ML VIAL ONE (09:37)
[2021-03-11] MEDS ORDERED: LIDOCAINE 2% 100MG/5ML SDV (FOR ANES.) ONE (09:37)
--- NOTE | 2021-03-11 10:07 | ROOR ---
Patient Name: Sanchez Mccracken Procedure Date: 03/11/2021 9:38 AM Date of : 1965 Age: 55 Room: [facility] Gender: Female Note Status: Finalized Procedure: Colonoscopy Indications: High risk colon cancer surveillance: Personal history of colonic polyps Providers: Chilango RILEY MD Referring MD: Caroline ROBLEDO Requesting Provider: Medicines: Monitored Anesthesia Care Complications: No immediate complications. Procedure: Pre-Anesthesia Assessment: - The heart rate, respiratory rate, oxygen saturations, blood pressure, adequacy of pulmonary ventilation, and response to care were monitored throughout the procedure. The Colonoscope was introduced through the anus and advanced to the cecum, identified by appendiceal orifice and ileocecal valve. The colonoscopy was performed without difficulty. The patient tolerated the procedure well. The quality of the bowel preparation was good. Findings: The perianal and digital rectal examinations were normal. Multiple small and large-mouthed diverticula were found in the sigmoid colon. There was evidence of diverticular spasm. A diminutive polyp was found in the sigmoid colon. The polyp was sessile. The polyp was removed with a jumbo cold forceps. Resection and retrieval were complete. The exam was otherwise normal throughout the examined colon. Impression: - Moderate diverticulosis in the sigmoid colon. There was evidence of diverticular spasm. - One diminutive polyp in the sigmoid colon, removed with a jumbo cold forceps. Resected and retrieved. Recommendation: - Telephone endoscopist for pathology results in 2 weeks. - If the pathology report reveals adenomatous tissue, then repeat the colonoscopy for surveillance in 5 years. Procedure Code(s): --- Professional --- 20757, Colonoscopy, flexible; with biopsy, single or multiple Diagnosis Code(s): --- Professional --- Z86.010, Personal history of colonic polyps K63.5, Polyp of colon K57.30, Diverticulosis of large intestine without perforation or abscess without bleeding CPT copyright 2019 [employer]. All rights reserved. The codes documented in this report are preliminary and upon wind operations manager review may be revised to meet current compliance requirements. Chilango Riley MD Chilango RILEY MD 03/11/2021 10:07:06 AM Electronically signed by Chilango RILEY MD Number of Addenda: 0 Note Initiated On: 03/11/2021 9:38 AM Estimated Blood Loss: Estimated blood loss: none.
[2021-03-11 10:31] VITALS: BP 139/93
== END 2021-03-11 10:32 | disposition home or self-care (01) ==
LOC: M OPP 08:36
PROVIDERS: ATTEND Internal Medicine Gastroenterology
DX: Z12.11 Encounter for screening for malignant neoplasm of colon (principal); Z86.010 Personal history of colon polyps; K63.5 Polyp of colon; K57.30 Diverticulosis of large intestine without perforation or abscess without bleeding; Z91.018 Allergy to other foods; Z91.040 Latex allergy status; Z79.899 Other long term (current) drug therapy

== ENCOUNTER → 2021-03-16 | Outpatient (REF) | payer BC ==
[~2021-03-16] MED LIST changes: -NS 1,000 ML IV ONE
[2021-03-16 18:07] LABS: BASO # 0.1 10^3/uL (0.0-0.2); BASO % 0.5 % (0.0-1.0); EOS # 0.2 10^3/uL (0.0-0.5); EOS % 2.1 % (0.0-3.0); HEMATOCRIT 43.1 % (36.0-47.0); HEMOGLOBIN 13.4 g/dl (12.0-15.5); LYMPH % 28.9 % (24.0-44.0); MEAN CORPUSCULAR HEMOGLOBIN 27.3 pg (27.0-33.0); MEAN CORPUSCULAR HGB CONC 31.1 g/dl (32.0-36.5); MONO # 0.8 10^3/uL (0.0-0.8); NEUTROPHILS # 6.2 10^3/uL (1.5-8.5); PLATELET COUNT, AUTOMATED 244 10^3/uL (150-450); WHITE BLOOD COUNT 10.3 10^3/uL (4.0-10.0)
[2021-03-16 18:24] LABS: HEMOGLOBIN A1c 5.9 %
[2021-03-16 18:50] LABS: ALT/SGPT 24 U/L (12-78); BILIRUBIN,TOTAL 0.3 MG/DL (0.2-1.0); BLOOD UREA NITROGEN 18 MG/DL (7-18); CALCIUM LEVEL 9.1 MG/DL (8.5-10.1); CARBON DIOXIDE LEVEL 30 MEQ/L (21-32); CHLORIDE LEVEL 107 MEQ/L (98-107); CHOLESTEROL LEVEL 200 MG/DL (<200); CHOLESTEROL RISK RATIO 4.347 (<5); FREE T4 0.97 NG/DL (0.76-1.46); GLOMERULAR FILTRATION RATE > 60.0 (>51); GLUCOSE, FASTING 87 MG/DL (70-100); HDL CHOLESTEROL 46 MG/DL (>40); LDL CHOLESTEROL 125 MG/DL (<100); NON-HDL-C 154 MG/DL; POTASSIUM SERUM 4.5 MEQ/L (3.5-5.1); SODIUM LEVEL 142 MEQ/L (136-145); TOTAL PROTEIN 7.3 GM/DL (6.4-8.2); TRIGLYCERIDES LEVEL 143 MG/DL (<150)
== END ==
LOC: M SFHCPLAZ 15:01
PROVIDERS: ATTEND Physician Assistant Medical
DX: R73.01 Impaired fasting glucose (principal); I10 Essential (primary) hypertension; E66.9 Obesity, unspecified; Z13.220 Encounter for screening for lipoid disorders

== ENCOUNTER → 2021-11-16 | Outpatient (CLI) | payer BC | LOC: M SLEEP HO 10:04 | PROVIDERS: ATTEND Physician Assistant Medical | DX: R40.0 Somnolence (principal) ==

== ENCOUNTER → 2022-03-03 | Outpatient (CLI) | payer BC ==
[~2022-03-03] MED LIST changes: -MONT10TA10 PO; +MONT10TA97 PO
== END ==
LOC: M WHC 13:01
PROVIDERS: ATTEND Physician Assistant Medical
DX: Z12.31 Encounter for screening mammogram for malignant neoplasm of breast (principal)

== ENCOUNTER → 2022-03-06 | Outpatient (REF) | LOC: M EMP 08:02 | PROVIDERS: ATTEND Family Medicine | DX: Z11.52 Encounter for screening for COVID-19 (principal) ==

== ENCOUNTER → 2022-08-02 | Outpatient (CLI) | payer BC ==
[2022-08-02 09:19] LABS: BASO % 0.5 % (0.0-1.0); EOS # 0.2 10^3/uL (0.0-0.5); EOS % 2.6 % (0.0-3.0); HEMATOCRIT 42.5 % (36.0-47.0); HEMOGLOBIN 13.3 g/dl (12.0-15.5); LYMPH # 2.1 10^3/uL (1.5-5.0); MEAN CORPUSCULAR HEMOGLOBIN 27.5 pg (27.0-33.0); MEAN CORPUSCULAR HGB CONC 31.3 g/dl (32.0-36.5); MEAN CORPUSCULAR VOLUME 87.8 fl (80.0-96.0); MONO # 0.6 10^3/uL (0.0-0.8); MONO % 8.2 % (2.0-8.0); NEUTROPHILS # 4.7 10^3/uL (1.5-8.5); NEUTROPHILS % 61.3 % (36.0-66.0); PLATELET COUNT, AUTOMATED 210 10^3/uL (150-450); RED BLOOD COUNT 4.84 10^6/uL (4.00-5.40); WHITE BLOOD COUNT 7.6 10^3/uL (4.0-10.0)
[2022-08-02 09:47] LABS: HEMOGLOBIN A1c 6.3 %
[2022-08-02 10:08] LABS: ALBUMIN 3.6 GM/DL (3.2-5.2); ALT/SGPT 21 U/L (12-78); BILIRUBIN,TOTAL 0.4 MG/DL (0.2-1.0); BLOOD UREA NITROGEN 19 MG/DL (7-18); CALCIUM LEVEL 8.6 MG/DL (8.5-10.1); CARBON DIOXIDE LEVEL 26 MEQ/L (21-32); CHLORIDE LEVEL 108 MEQ/L (98-107); CHOLESTEROL LEVEL 192 MG/DL (<200); CHOLESTEROL RISK RATIO 4.173 (<5); CREATININE FOR GFR 0.81 MG/DL (0.55-1.30); GLOMERULAR FILTRATION RATE > 60.0 (>51); GLUCOSE, FASTING 103 MG/DL (70-100); HDL CHOLESTEROL 46 MG/DL (>40); LDL CHOLESTEROL 113 MG/DL (<100); NON-HDL-C 146 MG/DL; SODIUM LEVEL 141 MEQ/L (136-145); TOTAL PROTEIN 6.9 GM/DL (6.4-8.2); TRIGLYCERIDES LEVEL 164 MG/DL (<150)
== END ==
LOC: M LAB 08:38
PROVIDERS: ATTEND Physician Assistant Medical
DX: R73.01 Impaired fasting glucose (principal); Z13.220 Encounter for screening for lipoid disorders

== ENCOUNTER → 2023-08-30 | Outpatient (REF) | LOC: M EMP 11:09 | PROVIDERS: ATTEND Family Medicine | DX: Z20.822 Contact with and (suspected) exposure to COVID-19 (principal) ==

== ENCOUNTER → 2023-11-22 | Outpatient (CLI) | payer BC ==
[2023-11-22 18:57] LABS: BASO # 0.1 10^3/uL (0.0-0.2); BASO % 0.5 % (0.0-1.0); EOS # 0.3 10^3/uL (0.0-0.5); EOS % 2.8 % (0.0-3.0); HEMATOCRIT 42.5 % (36.0-47.0); HEMOGLOBIN 13.5 g/dl (12.0-15.5); LYMPH # 2.1 10^3/uL (1.5-5.0); LYMPH % 20.7 % (24.0-44.0); MEAN CORPUSCULAR HGB CONC 31.8 g/dl (32.0-36.5); MEAN CORPUSCULAR VOLUME 88.2 fl (80.0-96.0); MONO # 0.8 10^3/uL (0.0-0.8); MONO % 7.6 % (2.0-8.0); NEUTROPHILS # 6.9 10^3/uL (1.5-8.5); NEUTROPHILS % 67.9 % (36.0-66.0); PLATELET COUNT, AUTOMATED 232 10^3/uL (150-450); RED BLOOD COUNT 4.82 10^6/uL (4.00-5.40); WHITE BLOOD COUNT 10.1 10^3/uL (4.0-10.0)
[2023-11-22 19:12] LABS: ALKALINE PHOSPHATASE 75 U/L (46-116); ALT/SGPT 18 U/L (7.0-40); AST/SGOT 14 U/L (<34); BILIRUBIN,TOTAL 0.3 MG/DL (0.3-1.2); BLOOD UREA NITROGEN 25 MG/DL (9-23); CALCIUM LEVEL 9.2 MG/DL (8.5-10.1); CARBON DIOXIDE LEVEL 29 MMOL/L (20-31); CHLORIDE LEVEL 105 MMOL/L (98-107); CHOLESTEROL LEVEL 179 MG/DL (<200); CHOLESTEROL RISK RATIO 3.81 (<5); CREATININE FOR GFR 0.77 MG/DL (0.55-1.30); GLOMERULAR FILTRATION RATE > 60.0 (>51); GLUCOSE, FASTING 93 MG/DL (60-100); HDL CHOLESTEROL 46.9 MG/DL (>40); LDL CHOLESTEROL 100.1 MG/DL (<100); NON-HDL-C 132.1 MG/DL; POTASSIUM SERUM 4.3 MMOL/L (3.5-5.1); SODIUM LEVEL 139 MMOL/L (136-145); TRIGLYCERIDES LEVEL 160 MG/DL (<150)
== END ==
LOC: M PLALAB 15:33
PROVIDERS: ATTEND Physician Assistant Medical
DX: Z13.220 Encounter for screening for lipoid disorders (principal)

== ENCOUNTER → 2025-01-14 | Outpatient (CLI) | payer BC | LOC: M WHC 13:31 | PROVIDERS: ATTEND Physician Assistant Medical | DX: Z12.31 Encounter for screening mammogram for malignant neoplasm of breast (principal) ==

== ENCOUNTER → 2025-05-30 | Outpatient (CLI) | payer BC ==
[2025-05-30 11:22] LABS: BASO # 0.0 10^3/uL (0.0-0.2); BASO % 0.6 % (0.0-1.0); EOS # 0.2 10^3/uL (0.0-0.5); EOS % 3.1 % (0.0-3.0); LYMPH # 2.0 10^3/uL (1.5-5.0); LYMPH % 31.5 % (24.0-44.0); MONO # 0.5 10^3/uL (0.0-0.8); MONO % 8.2 % (2.0-8.0); NEUTROPHILS # 3.6 10^3/uL (1.5-8.5); NEUTROPHILS % 56.3 % (36.0-66.0); PLATELET COUNT, AUTOMATED 229 10^3/uL (150-450)
[2025-05-30 11:36] LABS: ESTIMATED AVERAGE GLUCOSE 128.0 MG/DL (60-110)
[2025-05-30 11:47] LABS: ALT/SGPT 20.0 U/L (7.0-40); AST/SGOT 21.0 U/L (<34); CALCIUM LEVEL 8.7 MG/DL (8.5-10.1); CARBON DIOXIDE LEVEL 24.0 MMOL/L (20-31); CHLORIDE LEVEL 105.0 MMOL/L (98-107); CHOLESTEROL LEVEL 184.0 MG/DL (<200); CHOLESTEROL RISK RATIO 4.52 (<5); CREATININE FOR GFR 0.84 MG/DL (0.55-1.30); GLOMERULAR FILTRATION RATE 80.0 (>51); LDL CHOLESTEROL 113.7 MG/DL (<100); NON-HDL-C 143.3 MG/DL; POTASSIUM SERUM 4.3 MMOL/L (3.5-5.1); SODIUM LEVEL 142.0 MMOL/L (136-145); TRIGLYCERIDES LEVEL 148.0 MG/DL (<150)
[2025-05-30 11:49] LABS: FREE T4 1.12 NG/DL (0.89-1.76)
== END ==
LOC: M RAD 10:17
PROVIDERS: ATTEND Physician Assistant Medical
DX: M25.562 Pain in left knee (principal); I10 Essential (primary) hypertension; R40.0 Somnolence; R73.01 Impaired fasting glucose; Z13.220 Encounter for screening for lipoid disorders; M17.12 Unilateral primary osteoarthritis, left knee

== ENCOUNTER → 2025-06-02 | Outpatient (CLI) | payer BC | LOC: M RAD 14:58 | PROVIDERS: ATTEND Physician Assistant Medical | DX: M17.12 Unilateral primary osteoarthritis, left knee (principal) ==